=== PATIENT | female | born 1940 | race Caucasian/White ===

== ENCOUNTER 2017-01-09 07:48 | Inpatient (IN) | payer OTHER ==
--- NOTE | ~2017-01-09 | OP ---
Record Of Operation [facility] [address] [place]. [address] NAME: CHELA AHN : 42 STATUS : ADM IN PAT#: [id number] AGE: 77 ADM/REG DATE : 01/09/17 MR#: [id number] REPORT SERV DATE: 01/09/17 DICTATED BY: DAGO ALCANTARA II DATE: 01/09/17 REPORT STATUS : Draft TRANSCRIBED BY: MAICOL DATE: 01/09/17 DATE OF PROCEDURE: 01/09/2017 PRODUCTION SUPPORT SUPERVISOR: Dr. Elvia Vickers. PREOPERATIVE DIAGNOSIS: Critical left carotid stenosis. POSTOPERATIVE DIAGNOSIS: Critical left carotid stenosis. PROCEDURES: 1. Left carotid endarterectomy with bovine patch angioplasty. 2. Completion intraoperative duplex ultrasound. ANESTHESIA: General. IV FLUIDS: 1500 mL of crystalloid. ESTIMATED BLOOD LOSS: 100 mL. SPECIMENS: Carotid plaque. DRAINS: 15-Pashto Bhavin. DETAILS OF THE PROCEDURE: The patient was taken to the operating room and placed in supine position on the table. Protective padding and a shoulder roll was placed. We then prepped and draped in a sterile fashion. An incision was made along the anterior border of the sternocleidomastoid. The platysma was divided with electrocautery. The facial vein was ligated with 2-0 silk. The carotid sheath was opened and we placed vessel loops around the common internal and external carotid artery. Systemic heparin was given. The hypoglossal and vagus nerves were identified and preserved throughout the case. Arteriotomy was then made in the common carotid and extended through the bifurcation onto the internal carotid. A shunt was placed without difficulty. There was severe calcific plaque at the origin of the internal carotid artery stenosis was more than 80%. Using a Watson elevator, we removed all visible plaque down to a smooth endarterectomy surface. We then placed 7-0 tacking sutures distally and then closed the vessel using a bovine pericardial patch and a running 6 0 Prolene. Prior to complete closure, we removed the shunt and flushed. Intraoperative ultrasound was performed. This demonstrates a widely patent endarterectomy site. There was no thrombus, filling defect, or debris noted. There was a normal carotid waveform and velocities noted on ultrasound. We then thoroughly irrigated, placed a 15-Pashto Bhavin drain, and then closed with interrupted 3-0 Vicryl in the platysma. We closed the skin with Monocryl. At the end of the procedure, the patient was stable. She had tolerated it well. NAGA/MAICOL Record Of [place] [id number] [place]. [address] NAME: CHELA AHN : 42 STATUS : ADM IN PAT#: [id number] AGE: 77 ADM/REG DATE : 01/09/17 MR#: [id number] REPORT SERV DATE: 01/09/17 DICTATED BY: DAGO ALCANTARA II DATE: 01/09/17 REPORT STATUS : Draft TRANSCRIBED BY: MAICOL DATE: 01/09/17 Dago Alcantara II, M.D. / [id number] CC: Celeste Carrington II, M.D.
[~2017-01-09 07:48] MED LIST: ACET500CAP PO; CALTRA600D PO; DIOVAN HC1 PO; NORV5 PO; PLAVIX PO; PREV15 PO
[2017-01-09 08:29] LABS: ASCORBIC ACID (UR NOT ORDER) NEG (NEG); BILIRUBIN, URINE NEGATIVE (NEG); KETONE, URINE NEGATIVE (NEG); LEUKOCYTE ESTERASE(NOT OR NEG (NEG); WBC (NOT ORDERED) (RFLEX) < 1 (0-5)
[2017-01-09 08:59] LABS: BASOPHILS 0.4 %; BASOPHILS ABSOLUTE 0.03 10/3/uL (0.0-0.16); EOSINOPHILS 0.3 %; EOSINOPHILS ABSOLUTE 0.02 10/3/uL (0.0-0.53); HEMATOCRIT 37.5 % (36.0-48.0); HEMOGLOBIN 12.5 g/dL (12.0-16.0); IMMATURE GRANULOCYTES 0.3 %; IMMATURE GRANULOCYTES ABSOLUTE 0.02 10/3/uL (0.0-0.11); LYMPHOCYTES 36.6 %; LYMPHOCYTES ABSOLUTE 2.46 10/3/uL (0.67-4.30); MEAN CORPUS HGB CONC 33.3 g/dL (32.0-36.0); MEAN CORPUSCULAR HEMOGLOB 27.7 pg (26.0-34.0); MEAN CORPUSCULAR VOLUME 83.1 fL (80-100); MEAN PLATELET VOLUME 10.2 fL (9.2-13.0); MONOCYTES 6.4 %; MONOCYTES ABSOLUTE 0.43 10/3/uL (0.21-1.20); NEUTROPHILS ABSOLUTE 3.77 10/3/uL (2.02-8.40); PLATELET COUNT 259 10/3/uL (150-400); RBC DISTRIBUTION WIDTH 13.8 % (12.0-16.0); RED CELL COUNT 4.51 10/6/uL (4.0-5.6); WHITE BLOOD CELLS 6.7 10/3/uL (4.5-10.5)
[2017-01-09 09:02] LABS: MANUAL DIFF NO %
[2017-01-09 09:12] LABS: BUN (BLOOD UREA NITROGEN) 20 MG/DL (6-23); CALCIUM, SERUM 9.7 MG/DL (8.5-10.4); CHLORIDE, SERUM 105 MMOL/L (96-112); CO2 (CARBON DIOXIDE) 27 MMOL/L (24-34); CREATININE 0.88 MG/DL (0.55-1.02); GFR AFRICAN AMERICAN 74 ML/MIN (>=60); GFR NON AFRICAN AMERICAN 64 ML/MIN (>=60); POTASSIUM, SERUM 3.6 MMOL/L (3.5-5.3); SODIUM, SERUM 141 MMOL/L (135-148)
[2017-01-09 09:16] LABS: GLUCOSE, SERUM 113 MG/DL (60-99)
[2017-01-09 13:36] LABS: HEMOGLOBIN 10.6 g/dL (12.0-16.0)
[2017-01-09 13:37] LABS: HEMATOCRIT 32.2 % (36.0-48.0)
== END 2017-01-10 13:31 | disposition home or self-care (01) | DRG 39 ==
LOC: SDC/OF 07:48 → CVICU 16:07
PROVIDERS: Surgery
PROC: 03CL0ZZ Extirpation of Matter from Left Internal Carotid Artery, Open Approach (ICD-10-PCS; principal; 2017-01-09 09:45)
DX: I65.22 Occlusion and stenosis of left carotid artery (principal); I10 Essential (primary) hypertension; J45.909 Unspecified asthma, uncomplicated; K21.9 Gastro-esophageal reflux disease without esophagitis; Z85.3 Personal history of malignant neoplasm of breast
CPT/HCPCS: 71010; 78452; 80048; 81001; 85014; 85018; 85025; 85347; 87641; 88304; 88311; 93005; 93017; A9270-GY; A9502; C1768; J0461; J0690; J2270; J2370; J2405; J2710; J2720; J3010; J3370